=== PATIENT | male | born 1980 | race African-American/Black ===

== ENCOUNTER 2017-07-11 12:59 | Observation (INO) | payer BC, OTHER ==
[~2017-07-11] VITALS: Ht 190.5 cm; Wt 59.0 kg
[2017-07-11] VITALS (7 sets, daily range): BP systolic 129–170; BP diastolic 91–97; PULSE 58–72; RESP 16–20; TEMP 97.3–98.2; O2SAT 99–100
[~2017-07-11 12:59] MED LIST: CEPH500C3 PO; ERYT500 PO; LORT5TAB PO; PROM25SU8 PO; RANI150 PO
--- NOTE | 2017-07-11 14:10 | PD ---
HPI Chief Complaint: Chest Pain Time Seen by Provider: 14:08 Travel History International Travel<30 days: No Contact w/Intl Traveler<30days: No Traveled to known affect area: No History of Present Illness HPI Patient comes in complaining of chest pain, substernal, 5/10, nonradiating, onset 2 hours [employer]. no apparent alleviating/aggravating factors. pt denies assoc factors such as fever/n/v/d/abdpain/backpain/neckpain/ Listed allergy to erythromycin base, and penicillin Past medical history significant for smoking and hypertension PFSH Past Medical History Cardiovascular Problems: Yes (HEART MURMUR) Diminished Hearing: No Hypertension: Yes Social History Alcohol Use: Yes (OCC.) Tobacco Use: Yes (1 BLACK AND MILD EVERY 3 DAYS) Substance Use: No Allergies-Medications (Allergen,Severity, Reaction): Coded Allergies: erythromycin base (Verified Allergy, Severe, HIVES, 07/11/17) GASTRITITS penicillin G (Unverified Allergy, Severe, SHORTNESS OF BREATH, 07/11/17) Uncoded Allergies: shellfish (Allergy, Severe, Edema, 07/12/17) facial and tongue swelling Reported Meds & Prescriptions Reported Meds & Active Scripts Active No Active Prescriptions or Reported Medications Review of Systems General / Constitutional: No: Fever Eyes: No: Visual changes HENT: No: Headaches Cardiovascular: Positive: Chest Pain or Discomfort Respiratory: No: Shortness of Breath Gastrointestinal: No: Abdominal Pain Genitourinary: No: Dysuria Musculoskeletal: No: Pain Skin: No Rash Neurologic: No: Weakness Psychiatric: No: Depression Endocrine: No: Polydipsia Hematologic/Lymphatic: No: Easy Bruising Physical Exam Narrative GENERAL: SKIN: Warm and dry. HEAD: Atraumatic. Normocephalic. EYES: Pupils equal and round. No scleral icterus. No injection or drainage. ENT: No nasal bleeding or discharge. Mucous membranes pink and moist. NECK: Trachea midline. No JVD. CARDIOVASCULAR: Regular rate and rhythm. RESPIRATORY: No accessory muscle use. Clear to auscultation. Breath sounds equal bilaterally. GASTROINTESTINAL: Abdomen soft, non-tender, nondistended. MUSCULOSKELETAL: Extremities without clubbing, cyanosis, or edema. No obvious deformities. NEUROLOGICAL: Awake and alert. No obvious cranial nerve deficits. Motor grossly within normal limits. Five out of 5 muscle strength in the arms and legs. Normal speech. PSYCHIATRIC: Appropriate mood and affect; insight and judgment normal. Data Data Last Documented VS Orders Orders Electrocardiogram (07/11/17 13:20) Complete Blood Count With Diff (07/11/17 13:20) Basic Metabolic Panel (Bmp) (07/11/17 13:20) Ckmb (Isoenzyme) Profile (07/11/17 13:20) Troponin I (07/11/17 13:20) Chest, Single Ap (07/11/17 13:20) CKMB (07/11/17 14:34) CKMB% (07/11/17 14:34) Admit Order (Ed Use Only) (07/11/17 15:41) Labs Laboratory Tests Test 07/11/17 14:34 White Blood Count 7.4 TH/MM3 Red Blood Count 4.48 MIL/MM3 Hemoglobin 13.1 GM/DL Hematocrit 39.3 % Mean Corpuscular Volume 87.7 FL Mean Corpuscular Hemoglobin 29.2 PG Mean Corpuscular Hemoglobin Concent 33.3 % Red Cell Distribution Width 13.2 % Platelet Count 239 TH/MM3 Mean Platelet Volume 9.3 FL Neutrophils (%) (Auto) 72.0 % Lymphocytes (%) (Auto) 17.9 % Monocytes (%) (Auto) 8.4 % Eosinophils (%) (Auto) 1.1 % Basophils (%) (Auto) 0.6 % Neutrophils # (Auto) 5.3 TH/MM3 Lymphocytes # (Auto) 1.3 TH/MM3 Monocytes # (Auto) 0.6 TH/MM3 Eosinophils # (Auto) 0.1 TH/MM3 Basophils # (Auto) 0.0 TH/MM3 CBC Comment DIFF FINAL Differential Comment Blood Urea Nitrogen 14 MG/DL Creatinine 1.17 MG/DL Random Glucose 88 MG/DL Calcium Level 9.3 MG/DL Sodium Level 140 MEQ/L Potassium Level 3.9 MEQ/L Chloride Level 104 MEQ/L Carbon Dioxide Level 28.6 MEQ/L Anion Gap 7 MEQ/L Estimat Glomerular Filtration Rate 84 ML/MIN Total Creatine Kinase 115 U/L Creatine Kinase MB LESS THAN 0.5 NG/ML Troponin I LESS THAN 0.02 NG/ML MDM Medical Decision Making Medical Screen Exam Complete: Yes Emergency Medical Condition: Yes Medical Record Reviewed: Yes Interpretation(s) EKG shows a normal sinus rhythm, 68 bpm, normal intervals, no STEMI pattern. Differential Diagnosis Chest wall pain versus pneumothorax versus rib fracture versus pneumonia versus STEMI Narrative Course cxr neg for ptx/pna/pleural effusion ekg and first set of cardiac enzymes are not suggestive of ACS Diagnosis Primary Impression: cp r/o mi Admitting Information Admitting Physician Requests: Observation Scripts No Active Prescriptions or Reported Meds Shashank López MD Jul 11, 2017 14:10
--- NOTE | 2017-07-11 14:48 | RADRPT ---
EXAM DATE/TIME: 07/11/2017 14:37 [facility] COMPARISON: No previous studies available for comparison. INDICATIONS : Chest pain. MEDICAL HISTORY : None. SURGICAL HISTORY : None. ENCOUNTER: Initial ACUITY: 1 day PAIN SCORE: 6/10 LOCATION: Bilateral chest FINDINGS: A single view of the chest demonstrates the lungs to be symmetrically aerated without evidence of mas s, infiltrate or effusion. The cardiomediastinal contours are unremarkable. Osseous structures are intact. CONCLUSION: Normal examination. Ellyn Osullivan MD on July 11, 2017 at 14:46 Board Certified Radiologist. This report was verified electronically.
[2017-07-11 14:57] LABS: AUTOMATED NEUTROPHIL # 5.3 TH/MM3 (1.8-7.7); BASOPHIL % 0.6 % (0.0-2.0); EOSINOPHIL # 0.1 TH/MM3 (0-0.4); EOSINOPHIL % 1.1 % (0.0-4.0); HEMATOCRIT 39.3 % (39.0-51.0); HEMOGLOBIN 13.1 GM/DL (13.0-17.0); LYMPH % 17.9 % (9.0-44.0); LYMPHOCYTE # 1.3 TH/MM3 (1.0-4.8); MEAN CELL VOLUME 87.7 FL (80.0-100.0); MEAN CORPUSCULAR HEMOGLOBIN 29.2 PG (27.0-34.0); MEAN CORPUSCULAR HGB CONC 33.3 % (32.0-36.0); MEAN PLATELET VOLUME 9.3 FL (7.0-11.0); MONO % 8.4 % (0.0-8.0); MONOCYTE # 0.6 TH/MM3 (0-0.9); PLATELET COUNT 239 TH/MM3 (150-450); RED BLOOD COUNT 4.48 MIL/MM3 (4.50-5.90); RED CELL DISTRIBUTION WIDTH 13.2 % (11.6-17.2); WHITE BLOOD COUNT 7.4 TH/MM3 (4.0-11.0)
[2017-07-11 15:19] LABS: BICARBONATE 28.6 MEQ/L (21.0-32.0); BLOOD UREA NITROGEN 14 MG/DL (7-18); CALCIUM 9.3 MG/DL (8.5-10.1); CHLORIDE 104 MEQ/L (98-107); CREATININE 1.17 MG/DL (0.60-1.30); GLOMERULAR FILTRATION RATE 84 ML/MIN (>89); GLUCOSE,RANDOM 88 MG/DL (74-106); SODIUM (NA) 140 MEQ/L (136-145)
[2017-07-11 15:22] LABS: TROPONIN I LESS THAN 0.02 NG/ML (0.02-0.05)
[2017-07-11] MEDS ORDERED: IOHEXOL 350 MG/ML 10 ML VIAL (for RAD DIAG) IVCONTRAST ONE (15:44)
[2017-07-11] MEDS ORDERED: SODIUM CHLORIDE 0.9% FLUSH 10 ML FLUSH IV FLUSH PRN (17:00)
[2017-07-11] MEDS ORDERED: ONDANSETRON HCL 4 MG/2 ML VIAL IV PUSH PRN (17:00)
[2017-07-11 18:39] LABS: TROPONIN I LESS THAN 0.02 NG/ML (0.02-0.05)
[2017-07-11] MEDS: SODIUM CHLORIDE 0.9% FLUSH 10 ML FLUSH IV FLUSH SCH (20:28)
[2017-07-11] MEDS: FAMOTIDINE 20 MG TAB PO SCH (20:28)
[2017-07-12 03:17] VITALS: BP 116/62; PULSE 63; RESP 18; TEMP 97.8; O2SAT 100
[2017-07-12] MEDS ORDERED: ACETAMINOPHEN 500 MG CPLT PO PRN (07:45)
[2017-07-12] MEDS ORDERED: NITROGLYCERIN 0.4 MG SL 25 TABS/BTL SL PRN (07:45)
--- NOTE | 2017-07-12 07:55 | HHI.HP ---
HPI Primary Care Physician No Primary Care Physician Chief Complaint Chest pain History of Present Illness 37-year-old male without significant medical history presents to emergency room for further evaluation of chest pain. Onset one week. Location left anterior chest. Characterized as "gas." Initially discomfort felt as indigestion with accompanied frequent belching. Duration waxed and waned intensity. Intermittent radiation to left shoulder and left arm. No precipitating factors. Tried taking multiple types of "gas pills" without relief. Yesterday at 1 PM developed a quick onset in left anterior chest described as tightness with intermittent stabbing sensations. Radiation to left shoulder, elbow, and wrist. Associated symptoms dyspnea. No nausea, vomiting, or diaphoresis. Duration 2 hours. No particular movement or position may pain better or worse. Did not hurt to take a deep breath. No known precipitating or relieving factors. Chest pain free all evening and continues to deny any chest or arm discomfort. Review of Systems General: No fatigue,weakness, fever, chills, or recent illness change in appetite. Has been in his general state of health. HEENT: No REEVES, no vision changes, no nasal congestion or drainage, no dysphasia, no history of GERD CV: As stated above. No current chest pain, pressure, tightness. No palpitations, intermittent leg pain, or dizziness. History of heart murmur as child, yearly echoes, last echo 8-10 years ago, told at that time no longer would he require yearly echocardiograms. RESP: No SOB, cough, wheeze, recent URI, or history of asthma GI: No nausea, vomiting, bowel changes, diarrhea, constipation, pain, distention , melena, or blood in the stool. No unintentional weight gain or weight loss. : No dysuria, urgency, frequency EXT: No lower leg edema, no paraesthesias MS: No discomfort, injury, trauma, or change in ROM NEURO: No difficulty with balance, LOC, motor/sensory deficits PSYCH: No anxiety, depression, or situational stress SKIN: No rashes, no concerning lesions Past Family Social History Allergies: Coded Allergies: erythromycin base (Verified Allergy, Severe, HIVES, 07/11/17) GASTRITITS penicillin G (Unverified Allergy, Severe, SHORTNESS OF BREATH, 07/11/17) Uncoded Allergies: shellfish (Allergy, Severe, Edema, 07/12/17) facial and tongue swelling Past Medical History None Past Surgical History None Reported Medications Reported Meds & Active Scripts Active None Active Ordered Medications Current Medications Medications (Trade) Dose Ordered Sig/Tom Route Start Time Stop Time Status Last Admin (NS Flush) 2 ml UNSCH PRN IV FLUSH 07/11/17 17:00 (NS Flush) 2 ml BID IV FLUSH 07/11/17 21:00 07/11/17 20:28 (Zofran Inj) 4 mg Q6H PRN IV PUSH 07/11/17 17:00 (Pepcid) 20 mg BID PO 07/11/17 21:00 07/11/17 20:28 (Aspirin) 325 mg DAILY PO 07/12/17 09:00 (Tylenol) 500 mg Q4H PRN PO 07/12/17 07:45 UNV (Nitrostat Sl) 0.4 mg Q5M PRN SL 07/12/17 07:45 UNV (Aspirin) 325 mg DAILY PO 07/12/17 09:00 UNV Family History Noncontributory for early onset cardiovascular disease. Social History No known hypertension, hyperlipidemia, or diabetes. Remote history of hypertension approximately 8 years ago, taken off medication after 2 years. Remote intermittent tobacco use. Denies any alcohol or illegal drug use. Endorses is sedentary lifestyle. Past cardiac testing None Physical Exam Vital Signs Vital Signs Date Time Temp Pulse Resp B/P (MAP) Pulse Ox O2 Delivery O2 Flow Rate FiO2 07/12/17 03:17 97.8 63 18 116/62 (80) 100 07/11/17 23:00 59 07/11/17 19:18 98.2 63 18 136/93 (107) 99 07/11/17 19:18 100 21 07/11/17 18:35 97.3 58 16 144/91 (108) 100 07/11/17 17:46 63 17 153/92 (112) 99 07/11/17 15:53 68 17 129/91 (104) 100 Room Air 07/11/17 14:39 62 95 Room Air 07/11/17 14:39 62 18 162/97 (118) 100 Room Air 07/11/17 13:11 97.4 72 20 170/97 (121) Physical Exam GENERAL: Alert WN, WD, NAD, pleasant, male HEAD: NC, AT EYES: Sclera clear, conjunctiva without injection, pupils equal and round ENT: Mucous membranes pink and moist, no nasal discharge or bleeding NECK: Supple, no masses, trachea midline CV: RRR, 1/6 systolic murmur, no rub, no gallop, no JVD, S1-S2 no S3-S4. Chest wall nontender with palpation. RESP: Clear lungs throughout bilateral, no crackles, wheeze, rhonchi, symmetrical chest rise, nonlabored, able to speak in full sentences ABD: Soft, NT, ND, no masses, positive bowel tones BACK: No scoliosis EXT: Pulses +24, no dependent edema MS: Normal tone 4 extremities, nontender, no obvious deformities, full range of motion NEURO: CN II through CN XII grossly intact, motor strength 5/5, gait WNL PSYCH: A+O 3, pleasant affect, appropriate speech, mood, insight and judgment SKIN: Normal turgor, normal texture, no lesions, no rashes, brisk cap refill, even hair distribution Laboratory Laboratory Tests Test 07/11/17 14:34 07/11/17 17:52 07/11/17 20:30 White Blood Count 7.4 Red Blood Count 4.48 Hemoglobin 13.1 Hematocrit 39.3 Mean Corpuscular Volume 87.7 Mean Corpuscular Hemoglobin 29.2 Mean Corpuscular Hemoglobin Concent 33.3 Red Cell Distribution Width 13.2 Platelet Count 239 Mean Platelet Volume 9.3 Neutrophils (%) (Auto) 72.0 Lymphocytes (%) (Auto) 17.9 Monocytes (%) (Auto) 8.4 Eosinophils (%) (Auto) 1.1 Basophils (%) (Auto) 0.6 Neutrophils # (Auto) 5.3 Lymphocytes # (Auto) 1.3 Monocytes # (Auto) 0.6 Eosinophils # (Auto) 0.1 Basophils # (Auto) 0.0 CBC Comment DIFF FINAL Differential Comment Blood Urea Nitrogen 14 Creatinine 1.17 Random Glucose 88 Calcium Level 9.3 Sodium Level 140 Potassium Level 3.9 Chloride Level 104 Carbon Dioxide Level 28.6 Anion Gap 7 Estimat Glomerular Filtration Rate 84 Total Creatine Kinase 115 221 101 Creatine Kinase MB LESS THAN 0.5 LESS THAN 0.5 0.5 Troponin I LESS THAN 0.02 LESS THAN 0.02 Result Diagram: 07/11/17 1434 07/11/17 1434 Imaging Last 48 hours Impressions Chest X-Ray 07/11/17 1320 Signed Impressions: Service Date/Time: Tuesday, July 11, 2017 14:37 - CONCLUSION: Normal examination. Ellyn Osullivan MD Course EKG Sinus rhythm, normal axis, no ST or T-segment changes Caprini VTE Risk Assessment Caprini VTE Risk Assessment: No/Low Risk (score <= 1) Caprini Risk Assessment Model Point Value = 1 Point Value = 2 Point Value = 3 Point Value = 5 Age 41-60 Minor surgery BMI > 25 kg/m2 Swollen legs Varicose veins or History of unexplained or recurrent spontaneous Oral contraceptives or hormone replacement Sepsis (< 1 month) Serious lung disease, including pneumonia (< 1 month) Abnormal pulmonary function Acute myocardial infarction Congestive heart failure (< 1 month) History of inflammatory bowel disease Medical patient at bed rest Age 61-74 Arthroscopic surgery Major open surgery (> 45 min) Laparoscopic surgery (> 45 min) Malignancy Confined to bed (> 72 hours) Immobilizing plaster cast Central venous access Age >= 75 History of VTE Family history of VTE Factor V Leiden Prothrombin [id number] Lupus anticoagulant Anticardiolipin antibodies Elevated serum homocysteine Heparin-induced thrombocytopenia Other congenital or acquired thrombophilia Stroke (< 1 month) Elective arthroplasty Hip, pelvis, or leg fracture Acute spinal cord injury (< 1 month) Prophylaxis Regimen Total Risk Factor Score Risk Level Prophylaxis Regimen 0-1 Low Early ambulation 2 Moderate Order ONE of the following: *Sequential Compression Device (SCD) *Heparin 5000 units SQ BID 3-4 Higher Order ONE of the following medications: *Heparin 5000 units SQ TID *Enoxaparin/Lovenox 40 mg SQ daily (WT < 150 kg, CrCl > 30 mL/min) *Enoxaparin/Lovenox 30 mg SQ daily (WT < 150 kg, CrCl > 10-29 mL/min) *Enoxaparin/Lovenox 30 mg SQ BID (WT < 150 kg, CrCl > 30 mL/min) AND/OR *Sequential Compression Device (SCD) 5 or more Highest Order ONE of the following medications: *Heparin 5000 units SQ TID (Preferred with Epidurals) *Enoxaparin/Lovenox 40 mg SQ daily (WT < 150 kg, CrCl > 30 mL/min) *Enoxaparin/Lovenox 30 mg SQ daily (WT < 150 kg, CrCl > 10-29 mL/min) *Enoxaparin/Lovenox 30 mg SQ BID (WT < 150 kg, CrCl > 30 mL/min) AND *Sequential Compression Device (SCD) Assessment and Plan Assessment and Plan #1 Atypical chest pain-admitted to chest pain center. Ruled out with 3 sets of EKGs, cardiac enzymes, and monitored on telemetry overnight. Seen and evaluated by Dr. Lisandro Pardo. Proceed with CT aorta and exercise stress testing this morning. Due to patient allergy of shellfish and never receiving iodine, orders for Benadryl and Solu-Cortef prior to CT scan written. If unremarkable, plans to discharge home. Encouraged establishing with PCP for preventive medical care and yearly well check ups. Verbalized understanding. Paty Ventura Jul 12, 2017 07:55
[2017-07-12 08:00] VITALS: PULSE 61
[2017-07-12] MEDS ORDERED: HYDROCORTISONE SOD SUCCINATE 100 MG VIAL IV PUSH ONE (08:45)
[2017-07-12] MEDS ORDERED: diphenhydrAMINE HCL 50 MG/ML VIAL IV PUSH ONE (08:45)
[2017-07-12] MEDS ORDERED: ASPIRIN 325 MG TAB PO SCH ×2 (09:00)
[2017-07-12] MEDS: SODIUM CHLORIDE 0.9% FLUSH 10 ML FLUSH IV FLUSH SCH (09:59)
[2017-07-12] MEDS: FAMOTIDINE 20 MG TAB PO SCH (09:59)
[2017-07-12 11:07] LABS: TROPONIN I LESS THAN 0.02 NG/ML (0.02-0.05)
--- NOTE | 2017-07-12 12:33 | RADRPT ---
EXAM DATE/TIME: 07/12/2017 11:52 [facility] COMPARISON: No previous studies available for comparison. INDICATIONS : Chest pain for one week. IV CONTRAST: 96 cc Omnipaque 350 (iohexol) IV RADIATION DOSE: 3.20 CTDIvol (mGy) MEDICAL HISTORY : Cardiovascular disease. Hypertension. SURGICAL HISTORY : None. ENCOUNTER: Initial ACUITY: 1 week PAIN SCALE: 6/10 LOCATION: chest TECHNIQUE: Volumetric scanning was performed using a multi-row detector CT scanner. The data was post processed with a variety of visualization algorithms including full volume maximum intensity projection, multi -planar sliding thin slab reformation, curved planar reformation, and surface rendering techniques. Using automated exposure control and adjustment of the mA and/or kV according to patient size, radiat ion dose was kept as low as reasonably achievable to obtain optimal diagnostic quality images. DICOM format image data is available electronically for review and comparison. FINDINGS: LUNGS: There is no consolidation or pneumothorax. No concerning pulmonary nodule is visualized. No pleural fluid is present. MEDIASTINUM: No abnormally enlarged lymph nodes by CT criteria. No axillary or hilar abnormalities are identified. ABDOMEN: The liver and spleen are free of focal defects. The gallbladder and pancreas demonstrate no abnormali ty. The adrenal glands are normal. The kidneys demonstrate no evidence of solid renal mass or hydrone phrosis. No free fluid or abdominal masses are identified. No para-aortic adenopathy. There is a judith gn-appearing cyst measuring 4 cm along the lower pole of the left kidney. PELVIS: No evidence of free fluid or pelvic mass. No abnormally enlarged inguinal or retroperitoneal lymph no gerald are present. The bladder is unremarkable. THORACIC AORTA: The thoracic aortic root is normal with normal branching of the great vessels. There is no evidence of aneurysm or dissection. ABDOMINAL AORTA: The aorta is normal in caliber without aneurysm or dissection. The renal arteries are patent bilater ally. The proximal celiac and superior mesenteric arteries are patent and normal in diameter. PELVIC VESSELS: The internal iliac and external iliac vessels are patent without aneurysm or stenosis. CONCLUSION: 1. 4 cm benign-appearing left renal cyst. 2. Otherwise, unremarkable examination for patient's age. Jonatan Cordoba MD on July 12, 2017 at 12:28 Board Certified Radiologist. This report was verified electronically.
--- NOTE | 2017-07-12 12:43 | HHI.DCPOC ---
Discharge Care Plan Diagnosis: (1) Atypical chest pain Goals to Promote Your Health * To prevent worsening of your condition and complications * To maintain your health at the optimal level Directions to Meet Your Goals Take your medications as prescribed Follow your dietary instruction Follow activity as directed Keep your appointments as scheduled Take your immunizations and boosters as scheduled If your symptoms worsen call your PCP, if no PCP go to Urgent Care Center or Emergency Room Smoking is Dangerous to Your Health. Avoid second hand smoke Call the 24-hour hour crisis hotline for domestic abuse at Paty Ventura Jul 12, 2017 12:43
--- NOTE | 2017-07-12 17:11 | EKG ---
Date Performed: 07/12/2017 Time Performed: 07:03:14 PTAGE: 37 years EKG: SINUS BRADYCARDIA SEPTAL MYOCARDIAL INFARCTION PROBABLE INFERIOR MYOCARDIAL INFARCTION ABNO RMAL ECG PREVIOUS TRACING : 07/12/2017 03.26 DOCTOR: Lisandro Pardo Interpretating Date/Time 07/12/2017 17:10:17
--- NOTE | 2017-07-12 17:11 | EKG ---
Date Performed: 07/12/2017 Time Performed: 03:26:35 PTAGE: 37 years EKG: Sinus rhythm ABNORMAL ECG PREVIOUS TRACING : 07/11/2017 13.22 Since previous tracing, no significant change noted DOCTOR: Lisandro Pardo Interpretating Date/Time 07/12/2017 17:10:42
--- NOTE | 2017-07-12 17:13 | EKG ---
Date Performed: 07/11/2017 Time Performed: 13:22:19 PTAGE: 37 years EKG: Sinus rhythm ABNORMAL ECG NO PREVIOUS TRACING DOCTOR: Lisandro Pardo Interpretating Date/Time 07/12/2017 17:13:01
--- NOTE | 2017-07-12 17:17 | TR ---
Date Performed: 07/12/2017 Time Performed: 09:02:21 DOCTOR: Lisandro Pardo DRUG LIST: CLINICAL HISTORY: REASON FOR TEST: Chest pain REASON FOR ENDING: OBSERVATION: CONCLUSION: Layton protocol completed. Stopped sec to exceeding target heart rate and leg fatigue . Maximum YV=462 Target HR Achieved=88.0% Maximum RL=409/98 Total Exercise Time=9:50. No repord chest discomfort. No ectopy. Upsloping st segments. St segments are nondiagnostic. Normal bp response. Gre at exercise tolerance. Recovery quick and unremarkable. COMMENTS: Patient exercised using the Layton protocol. No electrocardiographic changes were seen to suggest ischemia. Hemodynamic response to exercise was normal. No significant arrhythmia was prese nt.
== END 2017-07-12 15:37 | disposition home or self-care (01) ==
LOC: NEPD 12:59 → NEDA 15:43 → NEPFCDU 17:56
DX: R07.89 Other chest pain (principal); I10 Essential (primary) hypertension; R01.1 Cardiac murmur, unspecified; R06.00 Dyspnea, unspecified; Z88.0 Allergy status to penicillin; Z72.0 Tobacco use
CPT/HCPCS: 71045; 71275; 74174; 80048; 82550; 82552; 84484; 85025; 93005; 93017; 99285; G0378; J1200; J1720; Q9967